=== PATIENT | female | born 2000 | race Caucasian/White ===

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

== ENCOUNTER 2022-05-28 03:23 | Emergency (ER) | payer BC ==
[2022-05-28] MEDS ORDERED: Sodium Chloride 0.9% 1,000 ML IV ONE (03:30)
[2022-05-28] MEDS ORDERED: LORazepam 2 MG/ML SDV IVPUSH ONE (03:30)
[2022-05-28 04:14] LABS: BLOOD UREA NITROGEN,BUN 13 mg/dL (7.0-18.0); CARBON DIOXIDE,CO2 24.3 mmol/L (21.0-32.0); CHLORIDE,CL 100 mmol/L (98-107); GLUCOSE RANDOM 160 mg/dL (74-106); POTASSIUM,K 3.2 mmol/L (3.5-5.1); SODIUM,NA 138 mmol/L (136-145)
[2022-05-28 04:16] LABS: ESTIMATED GFR 94 mL/min (>60)
== END 2022-05-28 04:34 | disposition home or self-care (01) ==
LOC: MW.ED 03:23
DX: R07.9 Chest pain, unspecified (principal); Z20.822 Contact with and (suspected) exposure to COVID-19
CPT/HCPCS: 36415; 71045; 80053; 84443; 84484; 84703; 85025; 85379; 87635; 93005; 96361; 96374; 99285; J2060; J7030; U0002

== ENCOUNTER 2022-06-02 04:13 | Emergency (ER) | payer BC ==
[2022-06-02] MEDS ORDERED: Aspirin 81 MG Tab.Chew PO ONE (04:43)
[2022-06-02 05:47] LABS: CARBON DIOXIDE,CO2 23.4 mmol/L (21.0-32.0); POTASSIUM,K 3.6 mmol/L (3.5-5.1)
[2022-06-02] MEDS ORDERED: Iopamidol 755 MG/ML 500 ML Multipack Bottle IVPUSH ONE (05:50)
[2022-06-02] MEDS ORDERED: Magnesium Oxide 400 MG Tab PO ONE (05:52)
== END 2022-06-02 09:09 | disposition home or self-care (01) ==
LOC: MW.ED 04:13
DX: R07.89 Other chest pain (principal); R00.2 Palpitations; E83.42 Hypomagnesemia; F17.210 Nicotine dependence, cigarettes, uncomplicated; Z20.822 Contact with and (suspected) exposure to COVID-19
CPT/HCPCS: 36415; 71045; 71275; 80048; 82947; 83735; 84484; 85025; 87635; 93005; 99285; A9270; Q9967; 93010; U0002

== ENCOUNTER 2023-04-14 22:47 | Emergency (ER) | payer BC ==
[2023-04-14] MEDS ORDERED: Sodium Chloride 0.9% 1,000 ML IV ONE ×2 (22:57→22:58)
[2023-04-14] MEDS ORDERED: Loperamide 2 MG Cap PO STA (22:58)
[2023-04-14 23:23] LABS: BASOPHILS PERCENT AUTO 0.1 % (0.0-1.5); EOSINOPHILS PERCENT AUTO 0.2 % (0.0-7.0); HEMATOCRIT 41.8 % (36.0-46.0); HEMOGLOBIN 14.9 g/dL (12.0-16.0); LYMPHOCYTES ABSOLUTE AUTO 1.3 K/uL (0.6-2.4); LYMPHOCYTES PERCENT AUTO 8.3 % (16.0-40.0); MEAN CORPUSCULAR HEMOGLOBIN 29.6 pg (27.0-32.0); MEAN CORPUSCULAR HGB CONC 35.6 g/dL (31.0-37.0); MEAN CORPUSCULAR VOLUME 82.9 fL (80.0-98.0); MONOCYTES ABSOLUTE AUTO 1.2 K/uL (0.0-0.8); MONOCYTES PERCENT AUTO 7.7 % (0.0-15.0); NEUTROPHILS ABSOLUTE AUTO 12.6 K/uL (1.4-5.7); NEUTROPHILS PERCENT AUTO 83.7 % (48.0-80.0); NRBC ABSOLUTE 0 K/uL; PLATELET COUNT,PLT 327 K/uL (150-400); RED BLOOD CELL COUNT 5.04 M/uL (4.30-5.90); WHITE BLOOD CELL COUNT,WBC 15.09 K/uL (4.0-11.0)
[2023-04-14 23:53] LABS: ALBUMIN 4.5 g/dL (3.4-5.0); BILIRUBIN TOTAL 0.5 mg/dL (0.2-1.0); CALCIUM 9.4 mg/dL (8.5-10.1); CARBON DIOXIDE,CO2 18.5 mmol/L (21.0-32.0); CREATININE 0.8 mg/dL (0.6-1.0); EST CRCL DRUG DOSING (CG) 116.47 mL/min; POTASSIUM,K 3.8 mmol/L (3.5-5.1); PROTEIN TOTAL,TP 8.8 g/dL (6.4-8.2)
[2023-04-15 00:03] LABS: A/G RATIO 1.1 (0.9-1.6)
== END 2023-04-15 00:43 | disposition home or self-care (01) ==
LOC: MW.ED 22:47
DX: R55 Syncope and collapse (principal); R11.2 Nausea with vomiting, unspecified
CPT/HCPCS: 36415; 80053; 83690; 84703; 85025; 93005; 96360; 99284; A9270; J7030; 93010

== ENCOUNTER 2023-04-15 00:44 | Emergency (ER) | payer BC ==
[2023-04-15] MEDS ORDERED: Ondansetron 4 MG Tab.DIS PO ONE ×2 (00:47→01:08)
== END 2023-04-15 01:23 | disposition home or self-care (01) ==
LOC: MW.ED 00:44
DX: R11.10 Vomiting, unspecified (principal)
CPT/HCPCS: 99283; A9270; 99284

== ENCOUNTER 2025-08-16 22:03 | Emergency (ER) | payer BC ==
[2025-08-16] MEDS ORDERED: Sodium Chloride 0.9% 10 ML Syringe FLUSH PRN (22:05)
[2025-08-16] MEDS ORDERED: Sodium Chloride 0.9% 2.5 ML Syringe FLUSH PRN (22:05)
[2025-08-16 22:21] LABS: GLUCOSE,URINE NEGATIVE (NEGATIVE); OCCULT BLOOD,URINE TRACE-INTACT (NEGATIVE)
[2025-08-16 22:23] LABS: APPEARANCE,URINE HAZY
[2025-08-16 22:30] LABS: BASOPHILS ABSOLUTE AUTO 0.05 K/uL (0.00-0.20); BASOPHILS PERCENT AUTO 0.4 % (0.0-1.0); EOSINOPHILS ABSOLUTE AUTO 0.07 K/uL (0.00-0.45); EOSINOPHILS PERCENT AUTO 0.5 % (0.0-6.0); IMMATURE GRAN ABSOLUTE AUTO 0.06 K/uL (0.00-0.05); IMMATURE GRAN PERCENT AUTO 0.5 % (0.0-0.4); LYMPHOCYTES ABSOLUTE AUTO 4.05 K/uL (1.00-4.80); LYMPHOCYTES PERCENT AUTO 31.8 % (24.0-44.0); MEAN PLATELET VOLUME 9.6 fL (9.4-12.3); MONOCYTES ABSOLUTE AUTO 1.41 K/uL (0.00-0.80); MONOCYTES PERCENT AUTO 11.1 % (0.0-8.0); NEUTROPHILS ABSOLUTE AUTO 7.10 K/uL (1.80-7.70); NEUTROPHILS PERCENT AUTO 55.7 % (41.0-71.0); NRBC ABSOLUTE 0.00 K/uL (0.00-0.02); NRBC PERCENT 0.0 /100WBC (0.0-0.2); PLATELET COUNT,PLT 335 K/uL (150-400); RED BLOOD CELL COUNT 4.57 M/uL (4.10-5.30); WHITE BLOOD CELL COUNT,WBC 12.74 K/uL (3.9-11.3)
[2025-08-16] MEDS: diphenhydrAMINE 50 MG/ML SDV IVPUSH ONE (22:31)
[2025-08-16 22:32] LABS: EPITHELIAL CELLS,URINE FEW (NONE-FEW)
[2025-08-16] MEDS: Ketorolac 30 MG/ML SDV IVPUSH ONE (22:32)
[2025-08-16] MEDS: Prochlorperazine 10 MG/2 ML SDV IVPUSH ONE (22:32)
[2025-08-16 22:52] LABS: A/G RATIO 1.0 (0.9-1.6); ALANINE AMINOTRANSFERASE,ALT 24.0 IU/L (14-63); ASPARTATE AMNIOTRANSFERASE,AST 16.0 IU/L (15-37); BILIRUBIN TOTAL 0.3 mg/dL (0.2-1.0); BLOOD UREA NITROGEN,BUN 13.0 mg/dL (7.0-18.0); CARBON DIOXIDE,CO2 25.9 mmol/L (21.0-32.0); CHLORIDE,CL 101.0 mmol/L (98-107); CREATININE 0.9 mg/dL (0.6-1.0); EST CRCL DRUG DOSING (CG) 102.47 mL/min; GLUCOSE RANDOM 90.0 mg/dL (74-106); POTASSIUM,K 3.6 mmol/L (3.5-5.1); PROTEIN TOTAL,TP 8.0 g/dL (6.4-8.2); SODIUM,NA 136.0 mmol/L (136-145)
[2025-08-16 22:53] LABS: ESTIMATED GFR 93.0 mL/min (>60)
[2025-08-17] MEDS ORDERED: Iopamidol 755 MG/ML 500 ML Multipack Bottle IVPUSH STA (00:12)
[2025-08-17] MEDS: Iopamidol 755 MG/ML 500 ML Multipack Bottle IVPUSH STA (00:16)
== END 2025-08-17 01:27 | disposition home or self-care (01) ==
LOC: MW.ED 22:03
DX: R10.31 Right lower quadrant pain (principal); R10.32 Left lower quadrant pain; R10.24 Suprapubic pain; G43.909 Migraine, unspecified, not intractable, without status migrainosus; R11.2 Nausea with vomiting, unspecified; D72.829 Elevated white blood cell count, unspecified; Z79.899 Other long term (current) drug therapy
CPT/HCPCS: 36415; 74177; 80053; 81001; 83690; 84703; 85025; 96361; 96374; 96375; 99284; A9270; J0780; J1200; J1885; J7030; Q9967